=== PATIENT | female | born 1985 | race Caucasian/White ===

== ENCOUNTER 2018-03-17 18:19 | Outpatient (CLI) | payer OTHER ==
[2018-03-17] MEDS ORDERED: OBSTETRIX EC C1 EACH PO (18:35)
== END 2018-03-18 07:00 | disposition left against medical advice (07) ==
LOC: OBS/DEL 18:19
DX: O46.8X2 Other antepartum hemorrhage, second trimester (principal); Z34.82 Encounter for supervision of other normal pregnancy, second trimester